=== PATIENT | female | born 1955 | race Caucasian/White ===

== ENCOUNTER → 2016-12-02 | Outpatient (CLI) | payer OTHER | END | disposition home or self-care (01) | LOC: C.PAPS 18:06 | PROVIDERS: ATTEND Physician Assistant | DX: Z12.4 Encounter for screening for malignant neoplasm of cervix (principal) ==

== ENCOUNTER → 2017-03-25 | Outpatient (CLI) | payer OTHER ==
--- NOTE | 2017-03-26 15:53 | MAMMOGRAPHY REPORT ---
BILATERAL DIGITAL SCREENING MAMMOGRAM TOMOSYNTHESIS WITH CAD: 03/25/2017 CLINICAL HISTORY: Routine screening. Patient has no complaints. TECHNIQUE: Breast tomosynthesis in addition to standard 2D mammography was performed. Current study was also evaluated with a Computer Aided Detection (CAD) system. COMPARISON: Comparison is made to exams dated: 06/27/2015 mammogram, 07/20/2013 mammogram, 07/23/2012 a spiration, 07/12/2012 ultrasound, 07/12/2012 mammogram, and 07/02/2011 mammogram - [facility] enter. BREAST COMPOSITION: There are scattered areas of fibroglandular density in both breasts. FINDINGS: No suspicious masses, calcifications, or areas of architectural distortion are noted in ei ther breast. There has been no significant interval change compared to prior exams. IMPRESSION: ACR BI-RADS CATEGORY 1: NEGATIVE There is no mammographic evidence of malignancy. A 1 year screening mammogram is recommended. The pa tient will receive written notification of the results. Approximately 10% of breast cancers are not detected with mammography. A negative mammographic report should not delay biopsy if a clinically suggestive mass is present. Kelly Wright M.D. /:03/25/2017 16:40:41 Executive Director [employer]: Mary Jane VALDEZ(Megan)(Justine), [facility] letter sent: Normal 1/2 BI-RADS Code: ACR BI-RADS Category 1: Negative
== END | disposition home or self-care (01) ==
LOC: C.MAMM 16:27
PROVIDERS: ATTEND Obstetrics & Gynecology
DX: Z12.31 Encounter for screening mammogram for malignant neoplasm of breast (principal)

== ENCOUNTER 2021-12-25 21:30 | Observation (INO) ==
[2021-12-25] MEDS ORDERED: ONDANSETRON INJ 2 MG/ML 2 ML VIAL ONE (21:35)
[2021-12-25] MEDS ORDERED: SODIUM CHLORIDE 0.9% 1000ML 1,000 ML IV STA (22:03)
[2021-12-25 22:25] LABS: Basophils # (auto) 0.03 K/uL (0-0.2); Basophils % (auto) 0.2 %; Eosinophils # (auto) 0.02 K/uL (0-0.50); Eosinophils % (auto) 0.2 %; Hematocrit (blood only) 38.9 % (34.1-44.9); Hemoglobin 13.1 g/dl (12.0-16.0); Immature Granulocytes # (auto) 0.04 K/uL (0.00-0.02); Immature Granulocytes % (auto) 0.3 %; Lymphocytes # (auto) 1.34 K/uL (1.2-3.4); Lymphocytes % (auto) 10.9 %; Mean Corpuscular Hemoglobin 30.3 pg (25.0-34.0); Mean Corpuscular Hgb Conc 33.7 g/dL (32.0-36.0); Mean Corpuscular Volume 89.8 fL (80.0-100.0); Mean Platelet Volume 9.5 fL (9.4-12.3); Monocytes # (auto) 0.58 K/uL (0.24-0.82); Monocytes % (auto) 4.7 %; Neutrophils # (auto) 10.33 K/uL (1.4-6.5); Neutrophils % (auto) 83.7 %; Platelet Count 225 K/uL (130-400); RDW Coefficient of Variation 13.3 % (11.5-14.5); RDW Standard Deviation 43.7 fL (36.4-46.3); Red Blood Count 4.33 M/uL (3.93-5.22); White Blood Count 12.34 K/ul (4.8-10.8)
[2021-12-25 22:48] LABS: Albumin Globulin Ratio 1.3 (0.9-2); Albumin Level 3.5 gm/dl (3.4-5.0); BUN Creatinine Ratio 18.6 (10-20); Bilirubin,Total 0.3 mg/dl (0.2-1.0); Calcium 7.8 mg/dl (8.5-10.1); Creatinine Clr Calc Pharmacy 67.1 ml/min; Est GFR (Non-African American) 69.9 ml/min; Globulin 2.6 gm/dl (2.5-4.0); Potassium 3.7 mmol/L (3.5-5.1); Total Protein 6.1 gm/dl (6.0-8.3)
[2021-12-25 22:53] LABS: Troponin I High Sensitivity 3.2 pg/ml (0-14)
[2021-12-26] MEDS ORDERED: ONDANSETRON INJ 2 MG/ML 2 ML VIAL IV STA (00:23)
--- NOTE | 2021-12-26 01:16 | Emergency Department Note ---
History of Present Illness General Chief complaint: Dizziness Stated complaint: Dizziness, Nausea, Vomiting Time Seen by Provider: 12/25/21 23:36 Source: patient Mode of arrival: EMS Limitations: no limitations History of Present Illness Provider complaint: dizziness Onset (ago): hour(s) This is a 66-year-old female who presents emergency department due to abrupt onset of vertigo with accompanying nausea, vomiting. Patient states she was out with her at the [employer] playing video games, when symptoms began abruptly. She states she has had prior episodes of vertigo versus typically they are brief lasting only several minutes. She states this episode is more severe precipitating nausea and vomiting, and symptoms did not pass. She denies any recent change in medications. No recent fevers, chills, or illness. She denies any coming headache, chest pain, abdominal pain, palpitations, shortness of breath. Patient states the dizziness is worse with any attempt at movement or sitting up as well as with opening or moving eyes. Home Medications Medication Instructions Recorded Confirmed Type fexofenadine 180 mg tablet 180 mg PO DAILY #90 tabs 09/01/18 12/26/21 Rx fluticasone propionate 50 2 sprays intranasal DAILY #16 grams 09/01/18 12/26/21 Rx mcg/actuation nasal spray,suspension albuterol sulfate 90 mcg/actuation 1 - 2 puff inhalation .COMPLEX PRN 08/21/20 12/26/21 Rx aerosol inhaler (Ventolin HFA) shortness of breath or wheezing #8.5 grams montelukast 10 mg tablet 10 mg PO QPM PRN Allergy Symptoms 12/19/20 12/26/21 History (Singulair) calcium carbonate 600 mg-vitamin 1 tab PO DAILY 12/26/21 12/26/21 History D3 10 mcg (400 unit) tablet (Calcium 600 + D(3)) multivitamin 1 tab PO DAILY 12/26/21 12/26/21 History aspirin 81 mg tablet,delayed 81 mg PO DAILY #90 tabs 12/27/21 Rx release atorvastatin 40 mg tablet 40 mg PO QAM #30 tabs 12/27/21 Rx clopidogrel 75 mg tablet 75 mg PO QAM #20 tabs 12/27/21 Rx cyanocobalamin (vitamin B-12) 1,000 mcg PO DAILY #30 caps 12/27/21 Rx 1,000 mcg capsule meclizine 25 mg tablet 25 mg PO TID PRN dizziness #10 tabs 12/27/21 Rx Allergies Allergy/AdvReac Type Severity Reaction Status Date / Time Penicillins Allergy Unknown Swelling Verified 12/26/21 01:09 of Lip/Tongue/Throat Past Med/Surg History Medical History (Updated 12/28/21 @ 06:01 by Maricarmen Cottrell DO) B12 deficiency History of asthma History of migraine headaches Prediabetes Tension headache Surgical History History of arthroscopy of right knee History of dilatation and curettage History of inguinal hernia repair History of knee surgery Family History Mother Breast cancer Lung cancer Depression Aunt Breast cancer Ovarian cancer Father Myocardial infarction Heart disease Hypertension Sister Skin cancer Uterine cancer Diabetes Brother Hypertension Sister No problems noted. Son Thyroid cancer Son No problems noted. Son No problems noted. Denies family history of Prostate cancer Colorectal cancer Social History Smoking Status: Former smoker Tobacco Type: Cigarettes Age Started Using Tobacco: 19; Age Quit Using Tobacco: 49; packs per day: 1; Years Smoked: 30; Second Hand Exposure: Yes; Hx Alcohol Use: Yes Alcohol type: beer, wine and hard liquor Alcohol Intake Frequency: 2-3 x/Week Hx Substance Use: No Preferred Language: Indonesian Communication Ability: Effective Visual Impairment: No Limitations Hearing Ability: Normal Front Desk Attendant Required: No Beliefs That Will Affect Care: None marital status: Current Living Situation: Spouse current occupational status: employed 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 Feels Safe at Home: Yes Childhood Exposure to Second-Hand Smoke: No Diet Comment: regular Dental Care, Regularly: Yes Physical Activity Frequency: 3-4 Times per Week Seatbelt Use: always Sunscreen Use: Yes Assistive Devices: None Review of Systems A total of 10 systems reviewed and were otherwise negative All systems reviewed & are unremarkable except as noted in HPI & below Physical Exam Vital Signs Vital Signs - 24 hr 12/25/21 21:43 12/25/21 22:26 12/25/21 22:26 Temperature 36.5 C Temperature Source Oral Pulse Rate 68 Pulse Rate [Finger] 65 Respiratory Rate 22 20 Respiratory Effort / Characteristics Non-Labored Spontaneous Non-Labored Spontaneous Respiratory Depth Normal Normal Blood Pressure 154/84 H Blood Pressure [Right Arm] 131/75 Blood Pressure Mean 107 Blood Pressure Mean [Right Arm] 93 Blood Pressure Position Sitting Blood Pressure Position [Right Arm] Sitting Pulse Oximetry 98 96 96 Oxygen Delivery Method Room Air Room Air Room Air Sepsis Recent Fever Within 48 Hours No Sepsis New/Unexplained Change in Mental Status No Sepsis Action Taken by Nursing No Action Required 12/26/21 00:14 Temperature Temperature Source Pulse Rate Pulse Rate [Finger] 83 Respiratory Rate 20 Respiratory Effort / Characteristics Non-Labored Spontaneous Respiratory Depth Normal Blood Pressure Blood Pressure [Right Arm] Blood Pressure Mean Blood Pressure Mean [Right Arm] Blood Pressure Position Blood Pressure Position [Right Arm] Pulse Oximetry 93 Oxygen Delivery Method Room Air Sepsis Recent Fever Within 48 Hours Sepsis New/Unexplained Change in Mental Status Sepsis Action Taken by Nursing GENERAL: alert, unwell appearing, well nourished, no distress, non-toxic EYE EXAM: normal conjunctiva, PERRL and EOM's grossly intact, nystagmus noted OROPHARYNX: no exudate, no erythema, lips, buccal mucosa, and tongue normal and mucous membranes are moist NECK: supple, no nuchal rigidity, no adenopathy, non-tender LUNGS: Clear to auscultation. Normal chest wall mechanics, no w/r/r HEART: no murmurs, S1 normal and S2 normal ABDOMEN: abdomen soft, non-tender, normo-active bowel sounds, no masses, no rebound or guarding. BACK: Back is symmetrical on inspection and there is no deformity, no midline tenderness, no CVA tenderness. SKIN: no rashes and no bruising UPPER EXTREMITIES: upper extremities are grossly normal. FROM, nml pulses b/l. LOWER EXTREMITIES: No pitting edema. FROM, nml pulses b/l. NEURO EXAM: Normal sensorium, cranial nerves II-XII grossly intact, normal speech, no gross weakness of arms, no gross weakness of legs. Gross sensation intact. Course Administered Medications Discontinued Medications Acetaminophen (Acetaminophen 500 Mg Tab) 1,000 mg PO Q6H PRN PRN Reason: Pain or Fever Stop: 01/26/22 11:33 Last Admin: 12/27/21 14:02 Dose: 1,000 mg Documented By: RRR Aspirin (Aspirin 81 Mg Ectab) 81 mg PO DAILY [facility] Stop: 01/25/22 08:59 Last Admin: 12/27/21 10:15 Dose: 81 mg Documented By: Admin: 12/26/21 11:02 Dose: 81 mg Documented By: JACQUELINE Atorvastatin Calcium (Atorvastatin 40 Mg Tab) 40 mg PO QAM [facility] Stop: 01/26/22 08:59 Last Admin: 12/27/21 10:16 Dose: 40 mg Documented By: RRR Clopidogrel Bisulfate (Clopidogrel Bisulfate 300 Mg Tab) 300 mg PO NOW STA Stop: 12/26/21 15:30 Last Admin: 12/26/21 15:49 Dose: 300 mg Documented By: JACQUELINE Clopidogrel Bisulfate (Clopidogrel Bisulfate 75 Mg Tab) [facility] Stop: 01/26/22 08:59 Last Admin: 12/27/21 10:16 Dose: 75 mg Documented By: SELENA Cyanocobalamin (Cyanocobalamin 1000 Mcg/Ml Vial) 1,000 [facility]cg [facility] Stop: 12/29/21 09:01 Last Admin: 12/27/21 10:36 Dose: 1,000 mcg Documented By: SELENA Diazepam (Diazepam 5 Mg/Ml Inj 10ml Vial) 2 mg IV NOW STA Stop: 12/26/21 00:24 Last Admin: 12/26/21 00:33 Dose: 2 mg Documented By: FRANCY Diazepam (Diazepam 5 Mg/Ml Inj 10ml Vial) 2 mg IV NOW STA Stop: 12/26/21 04:58 Last Admin: 12/26/21 05:40 Dose: 2 mg Documented By: FRANCY Diazepam (Diazepam 5 Mg/Ml Inj 10ml Vial) 5 mg IV NOW STA Stop: 12/26/21 09:01 Last Admin: 12/26/21 09:18 Dose: Not Given Documented By: JACQUELINE Gadobutrol (Gadobutrol 65ml Vial) 8 ml IV ONCE ONE Stop: 12/26/21 10:36 Last Admin: 12/26/21 10:34 Dose: 8 ml Documented By: RUDDY Sodium Chloride (Nss 1000ml) 1,000 mls @ 999 mls/hr IV .Q1H1M STA Stop: 12/25/21 23:03 Last Infusion: 12/25/21 23:39 Dose: 0 mls/hr Documented By: Admin: 12/25/21 22:04 Dose: 999 mls/hr Documented By: RODRIGO Prochlorperazine (Compazine) 1 mls @ 1 mls/min IV ONE ONE Stop: 12/26/21 04:58 Last Admin: 12/26/21 05:19 Dose: 1 mls/min Documented By: FRANCY Lorazepam 1 mg/ Syringe 1 mls @ 2 mls/min IV NOW STA Stop: 12/26/21 09:15 Last Admin: 12/26/21 09:51 Dose: 2 mls/min Documented By: JACQUELINE Sodium Chloride (Nss 1000ml) 1,000 mls @ 125 mls/hr IV .Q8H SLOAN Stop: 12/27/21 06:14 Last Infusion: 12/27/21 06:53 Dose: 0 mls/hr Documented By: Admin: 12/26/21 22:53 Dose: 125 mls/hr Documented By: Infusion: 12/26/21 22:48 Dose: 125 mls/hr Documented By: Admin: 12/26/21 14:48 Dose: 125 mls/hr Documented By: JACQUELINE Acetaminophen (Ofirmev) 1,000 mg in 100 mls @ 400 mls/hr IV Q8H PRN PRN Reason: pain or fever Stop: 12/29/21 14:15 Last Infusion: 12/26/21 23:42 Dose: 0 mls/hr Documented By: Admin: 12/26/21 23:27 Dose: 400 mls/hr Documented By: Infusion: 12/26/21 15:15 Dose: 0 mls/hr Documented By: Admin: 12/26/21 14:48 Dose: 400 mls/hr Documented By: JACQUELINE Ioversol (Optiray 320 500ml) 112 ml IV ONCE ONE Stop: 12/26/21 01:29 Last Admin: 12/26/21 01:29 Dose: 112 ml Documented By: JACINTO Meclizine HCl (Meclizine Hcl 25 Mg Tab) 25 mg PO NOW STA Stop: 12/26/21 03:07 Last Admin: 12/26/21 03:29 Dose: 25 mg Documented By: FRANCY Ondansetron HCl (Ondansetron Inj 2 Mg/Ml 2 Ml Vial) Confirm Administered Dose 4 mg .ROUTE .STK-MED ONE Stop: 12/25/21 21:36 Last Admin: 12/25/21 22:04 Dose: 4 mg Documented By: RODRIGO Ondansetron HCl (Ondansetron Inj 2 Mg/Ml 2 Ml Vial) 4 mg IV NOW STA Stop: 12/26/21 00:24 Last Admin: 12/26/21 00:34 Dose: 4 mg Documented By: FRANCY Ondansetron HCl (Ondansetron Inj 2 Mg/Ml 2 Ml Vial) 4 mg IV Q6H PRN PRN Reason: Nausea Stop: 01/25/22 08:01 Last Admin: 12/26/21 08:21 Dose: 4 mg Documented By: JACQUELINE Perflutren Lipid Microsphere (Perflutren Lipid Microsphere (Definity)) 2 ml IV ONCE ONE Stop: 12/26/21 13:48 Last Admin: 12/26/21 13:47 Dose: 2 ml Documented By: BENNY Potassium Chloride (Potassium Chloride Crtab 20 Meq Tabcr) 40 meq PO NOW STA Stop: 12/27/21 09:37 Last Admin: 12/27/21 10:16 Dose: 40 meq Documented By: RRR Medical Decision Making Differential Diagnosis Differential diagnosis includes etiologies such as benign positional vertigo, dehydration, hypovolemia, anemia, tumor, infection, hypoglycemia, electrolyte abnormalities, cardiac sources, intracerebral event, toxicologic, neurologic, as well as others were entertained. Medical Records Attestation: I reviewed the patient's medical records. Home Medications Current Medication List: was personally reviewed by me Laboratory Data Attestation: I reviewed the patient's lab results. Result diagrams: 12/27/21 05:46 12/27/21 05:46 Lab Results 12/25/21 12/25/21 12/26/21 Range/Units 22:15 22:15 02:00 WBC 12.34 H (4.8-10.8) K/ul RBC 4.33 (3.93-5.22) M/uL Hgb 13.1 (12.0-16.0) g/dl Hct 38.9 (34.1-44.9) % MCV 89.8 (80.0-100.0) fL MCH 30.3 (25.0-34.0) pg MCHC 33.7 (32.0-36.0) g/dL RDW Std Deviation 43.7 (36.4-46.3) fL RDW Coeff of Serenity 13.3 (11.5-14.5) % Plt Count 225 (130-400) K/uL MPV 9.5 (9.4-12.3) fL Immature Gran % (Auto) 0.3 % Neut % (Auto) 83.7 % Lymph % (Auto) 10.9 % [place] % (Auto) 4.7 % Eos % (Auto) 0.2 % Baso % (Auto) 0.2 % Neut # (Auto) 10.33 H (1.4-6.5) K/uL Lymph # (Auto) 1.34 (1.2-3.4) K/uL [place] # (Auto) 0.58 (0.24-0.82) K/uL Eos # (Auto) 0.02 (0-0.50) K/uL Baso # (Auto) 0.03 (0-0.2) K/uL Immature Gran # (Auto) 0.04 H (0.00-0.02) K/uL Sodium 140 (136-145) mmol/L Potassium 3.7 (3.5-5.1) mmol/L Chloride 111 H (98-107) mmol/L Carbon Dioxide 23 (21-32) mmol/L Anion Gap 6 (3-11) BUN 16 (6-23) mg/dl Creatinine 0.86 (0.6-1.2) mg/dl Est Cr Clr Drug Dosing 67.1 ml/min Est GFR ( Amer) 81.0 ml/min Est GFR (Non-Af Amer) 69.9 ml/min BUN/Creatinine Ratio 18.6 (10-20) Glucose 133 H (70-99(Fasting)) mg/dl Calcium 7.8 L (8.5-10.1) mg/dl Total Bilirubin 0.3 (0.2-1.0) mg/dl AST 14 (13-39) U/L ALT 13 (7-52) U/L Alkaline Phosphatase 46 (34-104) U/L Troponin I High Sens 3.2 (0-14) pg/ml Total Protein 6.1 (6.0-8.3) gm/dl Albumin 3.5 (3.4-5.0) gm/dl Globulin 2.6 (2.5-4.0) gm/dl Albumin/Globulin Ratio 1.3 (0.9-2) Urine Color Yellow Urine Appearance Clear (Clear) Urine pH 8.5 H (4.5-7.5) Ur Specific [place] 1.024 (1.000-1.030) Urine Protein Negative (Negative) Urine Glucose (UA) Negative (Negative) Urine Ketones Negative (Negative) Urine Blood Negative (Negative) Urine Nitrite Negative (Negative) Urine Bilirubin Negative (Negative) Urine Urobilinogen Negative (Negative) Ur Leukocyte Esterase Negative (Negative) Imaging Data Radiologist's Impression: CT head: Mild brain volume loss. No mass, hemorrhage or acute infarct. Sinuses, mastoids and the bones are intact. Impression: No acute findings. Radiologist: Otoniel Bella MD CTA neck: Aortic arch is intact. Minimal atherosclerosis of the proximal right ICA. The left carotids are intact. The vertebral arteries are intact. Upper lung bojorquez are clear. Soft tissue structures are intact. DJD. Impression: No acute findings. Radiologist: Otoniel Bella MD CTA head: The cavernous carotid arteries are intact. The MCAs and ACAs are intact. The vertebrals, basilar and the escapement maker are intact. Impression: No acute findings. Radiologist: Otoniel Bella MD MDM Narrative An order was placed for continuous cardiac monitoring. The monitor shows a rate of _86__ with _normal sinus_ rhythm. THis is a 66 yo female with a history of vertigo who presents with severe vertigo and nausea/vomiting. Labs drawn and sent and pt given zofran E [employer]. IVF started. Patient with a limited neuro exam due to symptoms, however no focal deficits noted. She admits to alcohol earlier in the evening but was not clinically intoxicated. Symptoms this evening lasted longer than usual. Imaging performed given severity and was reassuring. Labs reassuring. Patient given several medications for nausea and dizziness without improvement. Case discussed with hospitalist for additional evaluation. Impression & Plan Vertigo, Nausea & vomiting Discharge Plan Visit Data Chief Complaint: Dizziness Stated Complaint: Dizziness, Nausea, Vomiting ED Provider: Maricarmen Cottrell Discharge Problem: Vertigo, Nausea & vomiting Patient Disposition: Admitted As Inpatient Discharge Instructions Interventions: ED Discharge Assessment Last Done: 12/26/21 07:30
[2021-12-26] MEDS ORDERED: OPTIRAY 320 500ml IV ONE (01:28)
[2021-12-26 02:43] LABS: Appearance Urine Clear (Clear); Bilirubin Urine Negative (Negative); Blood Urine Negative (Negative); Color Urine Yellow; Glucose Urine UA Negative (Negative); Ketones Urine Negative (Negative); Leukocyte Esterase Urine Negative (Negative); Nitrite Urine Negative (Negative); Protein Urine Negative (Negative); Specific Gravity Urine 1.024 (1.000-1.030); Urobilinogen Urine Negative (Negative); pH Urine 8.5 (4.5-7.5)
[2021-12-26] MEDS ORDERED: MECLIZINE HCL 25 MG TAB PO STA (03:06)
[2021-12-26] MEDS ORDERED: PROCHLORPERAZINE 1 ML IV ONE (04:57)
--- NOTE | 2021-12-26 05:50 | History & Physical Report ---
Date of Service December 26, 2021 Assessment & Plan (1) Vertigo: Plan: 66yo female with history of migraine presenting with acute onset vertigo, nausea with multiple episodes of non-bloody/non-bilious vomiting. Symptoms are aggravated by slight movement and positional changes. No focal neurological deficits. Patient does report a brief episode of dysarthria several days ago which resolved after two aspirin. Concerning for possible TIA -Observation to medical with telemetry -Neuro checks per protocol -Check MRI brain -Check 2D echo -Check lipids and A1C -Will initiate ASA 81mg po daily for now - can be discontinued if no CVA present -Meclizine PRN -Zofran PRN History of Present Illness Chief Complaint: vertigo Primary Care Provider: Abbey Mora MD Mena Torres is a 66yo female presenting with acute onset of vertigo. She was out this evening with her at [employer]. She had a few drinks and was playing a video game when she developed acute onset of vertigo, nausea with vomiting. She was unable to keep her eyes open and was having difficulty with ambulation. She denies LUND, speech difficulty or focal numbness or weakness. She was given multiple agent in the ER to attempt to control nausea and dizziness, however, patient still unable to keep her eyes open for a long period of time. Persistent vomiting in the ER - Non-bloody/Non-bilious Afebrile, HD stable Vomiting throughout exam Patient does report a strange episode 3 days ago during which she was unable to speak. The event lasted approximately 30 seconds. She took 2 baby aspirin, and the symptoms resolved on their own. She has never had an experience like that before. ER Course: Diazepam 2mg x 2 doses, Prochlorperazine 1mL, Meclizine 25mg, Zofran 4mg IV x 4, NSS Allergies Allergy/AdvReac Type Severity Reaction Status Date / Time Penicillins Allergy Unknown Swelling Verified 12/26/21 01:09 of Lip/Tongue/Throat Home Medications Medication Instructions Recorded Confirmed Type fexofenadine 180 mg tablet 180 mg PO DAILY #90 tabs 09/01/18 12/26/21 Rx fluticasone propionate 50 2 sprays intranasal DAILY #16 grams 09/01/18 12/26/21 Rx mcg/actuation nasal spray,suspension albuterol sulfate 90 mcg/actuation 1 - 2 puff inhalation .COMPLEX PRN 08/21/20 12/26/21 Rx aerosol inhaler (Ventolin HFA) shortness of breath or wheezing #8.5 grams montelukast 10 mg tablet 10 mg PO QPM PRN Allergy Symptoms 12/19/20 12/26/21 History (Singulair) calcium carbonate 600 mg-vitamin 1 tab PO DAILY 12/26/21 12/26/21 History D3 10 mcg (400 unit) tablet (Calcium 600 + D(3)) multivitamin 1 tab PO DAILY 12/26/21 12/26/21 History Past Med/Surg History Medical History (Updated 12/26/21 @ 06:01 by Kareen Kramer DO) History of asthma History of migraine headaches Surgical History History of arthroscopy of right knee History of dilatation and curettage History of inguinal hernia repair History of knee surgery Family History Mother Breast cancer Lung cancer Depression Aunt Breast cancer Ovarian cancer Father Myocardial infarction Heart disease Hypertension Sister Skin cancer Uterine cancer Diabetes Brother Hypertension Sister No problems noted. Son Thyroid cancer Son No problems noted. Son No problems noted. 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 Feels Safe at Home: Yes Childhood Exposure to Second-Hand Smoke: No Diet Comment: regular Dental Care, Regularly: Yes Physical Activity Frequency: 3-4 Times per Week Seatbelt Use: always Sunscreen Use: Yes Assistive Devices: None Review of Systems Review of Systems: All systems reviewed & are unremarkable except as noted in HPI & below Physical Exam Physical Exam: General: patient resting, in moderate distress due to persistence of vertigo and vomiting Skin: warm, dry, intact, no rashes or lesions HEENT: NC/AT, PERRL, EOMI, anicteric sclera, conjunctiva without injection, external ear normal to inspection and nontender, nares patent, moist mucus membranes, dentition intact, no oropharyngeal lesions, neck supple, trachea midline, no LAD, no thyromegaly, no JVD Heart: +S1/S2, regular, no m/r/g Lungs: equal air entry bilaterally, no rales/rhonchi/wheezes Abd: +BS, soft, NT/ND, no masses/organomegaly/ascites Ext: warm, 2+ pulses in UE/LE bilaterally, no clubbing/cyanosis or edema Neuro:exam limited, largely nonfocal. Patient answers questions, speech clear and appropriate, no facial droop, MS 5/5 in UE/LE bilaterally, HINTS test attempted - unable to adequately perform head impulse test due to symptoms. No nystagmus noted. Normal test of skew. Strength 5/5 bilaterally Results & Data Results & Data ([facility]) Vital Signs (Past 12 Hours) Vital Signs Temp Pulse Pulse Resp BP BP Pulse Ox 12/26/21 05:00 74 17 116/85 94 12/26/21 04:00 73 19 127/103 H 12/26/21 03:00 70 14 98 12/26/21 00:14 83 20 93 12/25/21 22:26 65 20 131/75 96 12/25/21 22:26 96 12/25/21 21:43 36.5 C 68 22 154/84 H 98 O2 Del Method 12/26/21 05:00 Room Air 12/26/21 04:00 12/26/21 03:00 Room Air 12/26/21 00:14 Room Air 12/25/21 22:26 Room Air 12/25/21 22:26 Room Air 12/25/21 21:43 Room Air Laboratory Results Laboratory Results WBC 12.34 K/ul (4.8-10.8) H 12/25/21 22:15 RBC 4.33 M/uL (3.93-5.22) 12/25/21 22:15 Hgb 13.1 g/dl (12.0-16.0) 12/25/21 22:15 Hct 38.9 % (34.1-44.9) 12/25/21 22:15 MCV 89.8 fL (80.0-100.0) 12/25/21 22:15 MCH 30.3 pg (25.0-34.0) 12/25/21 22:15 MCHC 33.7 g/dL (32.0-36.0) 12/25/21 22:15 RDW Std Deviation 43.7 fL (36.4-46.3) 12/25/21:15 RDW Coeff of Serenity 13.3 % (11.5-14.5) 12/25/21 22:15 Plt Count 225 K/uL (130-400) 12/25/21 22:15 MPV 9.5 fL (9.4-12.3) 12/25/21 22:15 Immature Gran % (Auto) 0.3 % 12/25/21 22:15 Neut % (Auto) 83.7 % 12/25/21 22:15 Lymph % (Auto) 10.9 % 12/25/21 22:15 Dawson % (Auto) 4.7 % 12/25/21 22:15 Eos % (Auto) 0.2 % 12/25/21 22:15 Baso % (Auto) 0.2 % 12/25/21 22:15 Neut # (Auto) 10.33 K/uL (1.4-6.5) H 12/25/21 22:15 Lymph # (Auto) 1.34 K/uL (1.2-3.4) 12/25/21 22:15 Dawson # (Auto) 0.58 K/uL (0.24-0.82) 12/25/21 22:15 Eos # (Auto) 0.02 K/uL (0-0.50) 12/25/21 22:15 Baso # (Auto) 0.03 K/uL (0-0.2) 12/25/21 22:15 Immature Gran # (Auto) 0.04 K/uL (0.00-0.02) H 12/25/21 22:15 Sodium 140 mmol/L (136-145) 12/25/21 22:15 Potassium 3.7 mmol/L (3.5-5.1) 12/25/21 22:15 Chloride 111 mmol/L (98-107) H 12/25/21 22:15 Carbon Dioxide 23 mmol/L (21-32) 12/25/21 22:15 Anion Gap 6 (3-11) 12/25/21 22:15 BUN 16 mg/dl (6-23) 12/25/21 22:15 Creatinine 0.86 mg/dl (0.6-1.2) 12/25/21 22:15 Est Cr Clr Drug Dosing 67.1 ml/min 12/25/21 22:15 Est GFR ( Amer) 81.0 ml/min 12/25/21 22:15 Est GFR (Non-Af Amer) 69.9 ml/min 12/25/21 22:15 BUN/Creatinine Ratio 18.6 (10-20) 12/25/21 22:15 Glucose 133 mg/dl (70-99(Fasting)) H 12/25/21 22:15 Calcium 7.8 mg/dl (8.5-10.1) L 12/25/21 22:15 Total Bilirubin 0.3 mg/dl (0.2-1.0) 12/25/21 22:15 AST 14 U/L (13-39) 12/25/21 22:15 ALT 13 U/L (7-52) 12/25/21 22:15 Alkaline Phosphatase 46 U/L (34-104) 12/25/21 22:15 Troponin I High Sens 3.2 pg/ml (0-14) 12/25/21 22:15 Total Protein 6.1 gm/dl (6.0-8.3) 12/25/21 22:15 Albumin 3.5 gm/dl (3.4-5.0) 12/25/21 22:15 Globulin 2.6 gm/dl (2.5-4.0) 12/25/21 22:15 Albumin/Globulin Ratio 1.3 (0.9-2) 12/25/21 22:15 Urine Color Yellow 12/26/21 02:00 Urine Appearance Clear (Clear) 12/26/21 02:00 Urine pH 8.5 (4.5-7.5) H 12/26/21 02:00 Ur Specific [place] 1.024 (1.000-1.030) 12/26/21 02:00 Urine Protein Negative (Negative) 12/26/21 02:00 Urine Glucose (UA) Negative (Negative) 12/26/21 02:00 Urine Ketones Negative (Negative) 12/26/21 02:00 Urine Blood Negative (Negative) 12/26/21 02:00 Urine Nitrite Negative (Negative) 12/26/21 02:00 Urine Bilirubin Negative (Negative) 12/26/21 02:00 Urine Urobilinogen Negative (Negative) 12/26/21 02:00 Ur Leukocyte Esterase Negative (Negative) 12/26/21 02:[address] head, CTA head and neck performed with no acute abnormality PG Care Time/CCT Total # of Minutes Spent Total Time Spent with Patient: Total time spent is greater than 50% in coordination of care (as documented) at patient's floor/unit and/or counseling patient: Coding Level of Care Code INT OBSERVATION CARE 50M LVL 2 Diagnoses Vertigo R42
--- NOTE | 2021-12-26 07:13 | CT Scan Report ---
HEAD CT NONCONTRAST CT DOSE: 1160.87 mGy.cm HISTORY: liao, dizzy, vomiting TECHNIQUE: Multiaxial CT images of the head were performed without the use of intravenous contrast. A utomated exposure control was utilized for this study. A dose lowering technique was utilized adheri ng to the principles of ALARA. Comparison: Head CT 09/19/2018. Findings: The paranasal sinuses and mastoid air cells are clear. The calvarium and skull base are int act. The ventricles and sulci are within normal limits. There is no mass, hematoma, midline shift, or acute infarct. Impression: No acute intracranial abnormality. ACT 112: Negative or not required by law. Electronically signed by: Franklyn Guillermo M.D. 12/26/2021 7:12 AM
--- NOTE | 2021-12-26 07:37 | CT Scan Report ---
NECK CTA HISTORY: Headache, dizzy, vomiting TECHNIQUE: Multiaxial CT images of the neck were performed following the intravenous administration o f contrast to evaluate the major cervical vessels. Maximum intensity projection images were also obta ined. All measurements were calculated based on NASCET criteria. A dose lowering technique was utili zed adhering to the principles of ALARA. COMPARISON STUDY: None. FINDINGS: The aortic arch and proximal great vessels are widely patent. There is no significant sten osis, occlusion, or dissection identified within the bilateral common carotid, internal carotid, or v ertebral arteries. Incidental note is made of a focal kink within within the proximal left femoral ar caio. IMPRESSION: No significant stenosis, occlusion, or dissection identified within the carotid or vertebral arteries . ACT 112: Negative or not required by law. Electronically signed by: Franklyn Guillermo M.D. 12/26/2021 7:36 AM
[2021-12-26] MEDS ORDERED: ONDANSETRON INJ 2 MG/ML 2 ML VIAL IV PRN (08:02)
[2021-12-26] MEDS ORDERED: MECLIZINE HCL 25 MG TAB PO PRN (08:02)
[2021-12-26 08:51] LABS: Phosphorus 3.6 mg/dl (2.5-4.9)
--- NOTE | 2021-12-26 09:03 | CT Scan Report ---
CT ANGIOGRAM OF THE BRAIN CLINICAL HISTORY: Headache and dizziness. Vomiting. COMPARISON STUDY: Unenhanced CT of the brain performed concurrently on 12/26/2021. TECHNIQUE: Following the IV administration of 112 cc of Optiray 320, CT angiogram of the brain was pe rformed from the skull base to the vertex. Images are reviewed in the axial, sagittal, and coronal pl anes. 3-D MIPS images are created and assessed. IV contrast was administered without complication. A dose lowering technique was utilized adhering to the principles of ALARA. FINDINGS: Brain parenchyma: There is no evidence of hemorrhage, mass effect, or acute territorial ischemia noti ng angiographic phase technique. There is no evidence of enhancing mass lesion on the angiogram phase images. No extra-axial fluid collection is seen. Miles-white matter differentiation is preserved. Ventricles, sulci, and cisterns: Normal in configuration. CT angiogram of the brain: The internal carotid arteries are widely patent, as are the anterior and m iddle cerebral arteries. The basilar artery is diminutive and there are bilateral posterior communica ting arteries. The vertebrobasilar system and posterior cerebral arteries are widely patent. The vert ebral arteries are codominant. There is no aneurysm, high-grade stenosis, or focal vessel cutoff iden tified throughout the intracranial circulation. Dural sinuses: Clear as visualized. Orbits: The bony orbits are intact. The orbital contents are normal as visualized noting bilateral oc ular lens implants. Sinuses and mastoids: The visualized paranasal sinuses are clear. The mastoid air cells are well pneu matized. Calvarium: Unremarkable. IMPRESSION: 1. There is no evidence of hemorrhage, mass effect, or acute territorial ischemia noting angiographic phase technique. 2. Unremarkable CT angiogram of the brain ACT 112: Negative or not required by law. Electronically signed by: Gamaliel Moraes M.D. 12/26/2021 9:02 AM
[2021-12-26] MEDS ORDERED: LORazepam 1 MG in SYRINGE 0 ML IV STA (09:14)
--- NOTE | 2021-12-26 09:41 | Electrocardiogram Report ---
Test Reason : Blood Pressure : / mmHG Vent. Rate : 071 BPM Atrial Rate : 071 BPM P-R Int : 144 ms QRS Dur : 070 ms QT Int : 410 ms P-R-T Axes : 077 052 064 degrees QTc Int : 445 ms Normal sinus rhythm Normal ECG When compared with ECG of 19-SEP-2018 07:49, No significant change was found Confirmed by Howard Gary ([id number]) on 12/26/2021 9:41:03 AM Referred By: REFERRED SELF Confirmed By:Howard Gary
[2021-12-26] MEDS ORDERED: GADOBUTROL 65ML VIAL IV ONE (10:35)
[2021-12-26] MEDS: ASPIRIN 81 MG ECTAB PO SCH (11:02)
[2021-12-26] MEDS ORDERED: PERFLUTREN LIPID MICROSPHERE (DEFINITY) IV ONE (13:47)
--- NOTE | 2021-12-26 14:04 | Magnetic Resonance Report ---
MR brain wo/w con HISTORY: 66 years-old Female ?posterior CVA - vertigo, vomiting acute strokelike symptoms with verti go, nausea and vomiting. COMPARISON: Head CT of same day, brain MRI 11/03/2005. TECHNIQUE: Multiplanar and multisequence MRI of the brain was obtained both with and without the use of 8 cc Gadavist. FINDINGS: 5 mm focus of restricted diffusion is noted involving the superior aspect of the left cerebellum, brittany ge 8 series 4 with decreased signal on the ADC map. Mild associated increased T2/FLAIR signal. No acu te or subacute territorial infarct. Midline structures appear unremarkable. There is no pathologic blooming artifact on the T2 star series. No acute intracranial hemorrhage, mid line shift, abnormal extra-axial collection, hydrocephalus or intracranial mass. Cerebral venous sinu ses and major arterial flow voids appear patent. The skull and soft tissues are unremarkable. Prior b ilateral lens repair. Mastoid air cells and paranasal sinuses are clear. Volume and signal of the bra in parenchyma is within normal limits. No abnormal enhancement. IMPRESSION: 1. Subcentimeter acute infarct of the superior left cerebellum. 2. No acute or subacute territorial infarct. 3. No abnormal enhancement. ACT 112: Negative or not required by law. The above report was generated using voice recognition software. It may contain grammatical, syntax o r spelling errors. Dictated: 12/26/2021 12:45 PM Transcribed: 12/26/2021 1:01 PM Jaelyn [id number] [email or web address] Electronically signed by: Les Ling M.D. 12/26/2021 2:02 PM
--- NOTE | 2021-12-26 14:17 | Communication Note ---
Date of Service: December 26, 2021 Patient reports having a bitemporal headache, is very drowsy after receiving IV Ativan for sedation for her MRI. However, reports that her dizziness is much improved. No sensitivity to light, no nausea anymore but did have nausea and vomiting this morning. Later in the day, her MRI results returned and showed an acute left cerebellar stroke. I discussed these findings with her. She denies any history of hypertension, smoking, diabetes, prior stroke. She denies any history of blood clots in herself or the family. She also reports that several days ago she had an episode where she could not speak for few minutes. Also she has had an occurrence of blurry prism like vision in both eyes that lasts 2 minutes each time and has not followed by sandeep armenta. This has occurred at least 15 times in the last few months. She does have a previous history of migraine headaches but has not had one in a long time. She does however lately get tension headaches similar to when she has today. Vitals reviewed Gen: AAOx3, NAD HEENT: Anicteric sclerae, EOMI, PERRLA, no nystagmus CV: RRR no mgr nl S1S2 Pulm: CTAB no wcr Abd: +BS soft NT ND no masses or hernias Ext: No edema, 2+ DP pulses Skin: No rashes, warm/dry Neuro: Full strength throughout Labs and rads reviewed Telemetry with normal sinus rhythm, rates in the 70s to 90s CT angiogram head and neck negative, CT head negative MRI with 5 mm acute to subacute left cerebellar stroke 66-year-old female who presents with acute vertigo and intractable nausea/vomiting, now with bitemporal headache, found to have acute left cerebellar ischemic CVA. No large vessel occlusion seen on angiogram, no atrial fibrillation or flutter on telemetry. Echocardiogram negative for bubble study and with preserved EF, otherwise normal. No hypertension or diabetes, history of smoking Need to consider hypercoagulable panel but will consult with neurology Continue aspirin, add high intensity statin check lipid panel in the morning -Add IV fluids until tolerating p.o. better, give IV Tylenol as needed for headache -Continue meclizine as needed for vertigo
[2021-12-26] MEDS: ACETAMINOPHEN 1,000 MG/100 ML VIAL IV PRN ×2 (14:48→23:27)
[2021-12-26] MEDS: SODIUM CHLORIDE 0.9% 1000ML 1,000 ML IV SCH ×2 (14:48→22:53)
--- NOTE | 2021-12-26 15:27 | Neurology Consultation ---
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 CT angiography's and head CT were unremarkable. The patient was not a candidate for thrombolytic treatment because she was outside of treatment window when work-up completed. She has no known stroke risk factors including hypertension, hyperlipidemia, diabetes mellitus, and no history to suggest hypercoagulable state. She denies having palpitations but has family history of A. fib. Plan/recommendations: We will keep the patient on aspirin 81 mg daily. We will start patient on Plavix to use for 3 weeks, 75 mg daily. We will load the patient with 300 mg Plavix now. We will check fasting lipid panel. Goal LDL level is lower than 70. We will start patient on Lipitor if needed. There is no further indication for permissive hypertension. Goal blood pressure below 130/80. Telemetry monitoring. The patient will need cardiac rhythm monitoring. We do recommend Zio patch on discharge. I agree with meclizine to control symptoms of nausea, vomiting and vertigo. Physical therapy and Occupational Therapy evaluations. Echocardiogram. We will check the TSH, vitamin B12, homocystine. If the patient stays stable, we might consider discharge in next 24 hours. Follow-up at neurology clinic in a month. I will inform [facility] neurology clinic to set up a follow-up appointment. (2) Vertigo: Impression: This is secondary to acute cerebellar ischemic stroke. Plan Thank you for the consultation. 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 Head CT, CT angiography of head and neck were unremarkable. She was not having any sensorimotor deficit. After completing initial work-up, she was outside of thrombolytic treatment window. She was started on meclizine and aspirin and was admitted to hospital for stroke work-up. Since admission, her symptoms have been partially resolved. Brain MRI today showed acute ischemic stroke of cerebellum. The patient denies having stroke symptoms in the past. She is not a smoker and denies having hypertension, hyperlipidemia and diabetes mellitus. She has no history of recurrent DVTs, blood clotting abnormalities, or miscarriages. She also denies family history of early age strokes. She has no recollection of palpitations or racing heartbeats. Her father has atrial fibrillation. The patient denies head and neck trauma or having chiropractic maneuvers I have reviewed the patient's chart including imaging studies and visualized them personally. I have discussed the case with the patient and answer her questions in detail. Allergies Allergy/AdvReac Type Severity Reaction Status Date / Time Penicillins Allergy Unknown Swelling Verified 12/26/21 01:09 of Lip/Tongue/Throat Home Medications Medication Instructions Recorded Confirmed Type fexofenadine 180 mg tablet 180 mg PO DAILY #90 tabs 09/01/18 12/26/21 Rx fluticasone propionate 50 2 sprays intranasal DAILY #16 grams 09/01/18 12/26/21 Rx mcg/actuation nasal spray,suspension albuterol sulfate 90 mcg/actuation 1 - 2 puff inhalation .COMPLEX PRN 08/21/20 12/26/21 Rx aerosol inhaler (Ventolin HFA) shortness of breath or wheezing #8.5 grams montelukast 10 mg tablet 10 mg PO QPM PRN Allergy Symptoms 12/19/20 12/26/21 History (Singulair) calcium carbonate 600 mg-vitamin 1 tab PO DAILY 12/26/21 12/26/21 History D3 10 mcg (400 unit) tablet (Calcium 600 + D(3)) multivitamin 1 tab PO DAILY 12/26/21 12/26/21 History Patient History Medical History History of asthma History of migraine headaches Surgical History History of arthroscopy of right knee History of dilatation and curettage History of inguinal hernia repair History of knee surgery Family History Mother Breast cancer Lung cancer Depression Aunt Breast cancer Ovarian cancer Father Myocardial infarction Heart disease Hypertension Sister Skin cancer Uterine cancer Diabetes Brother Hypertension Sister No problems noted. Son Thyroid cancer Son No problems noted. Son No problems noted. Denies family history of Prostate cancer Colorectal cancer Social History Smoking Status: Former smoker Tobacco Type: Cigarettes Age Started Using Tobacco: 19; Age Quit Using Tobacco: 49; packs per day: 1; Years Smoked: 30; Second Hand Exposure: Yes; Hx Alcohol Use: Yes Alcohol type: beer, wine and hard liquor Alcohol Intake Frequency: 2-3 x/Week Hx Substance Use: No Preferred Language: Telugu Communication Ability: Effective Visual Impairment: No Limitations Hearing Ability: Normal Rn Occupational Required: No Beliefs That Will Affect Care: None marital status: Current Living Situation: Spouse current occupational status: employed 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 HENT: Normal exam with inspection. CV: Hearth rhythm is regular. Neck: Supple, no carotid bruits. Lungs: Non-labored and comfortable breathing. Abdomen: Soft, non-tender, non-distended. Skin: No rash or ecchymosis. Extremities: No edema or cyanosis NEUROLOGICAL EXAMINATION: Mental Status: Alert and oriented to place, person and time. Cranial Nerves: II-XII are intact. No nystagmus. Funduscopy: Normal looking optic discs. Motor: 5/5 in all extremities without asymmetry. Tone: Normal without spasticity or rigidity. DTRs: 2- all. No babinski. Sensory: Intact to all sensory modalities. Coordination: No dysmetria with FTN testing. Speech: Fluent. Comprehension is intact. Gait: Not assessed as movements induce vertigo Musculoskeletal: Normal muscle bulk, no atrophy. Results & Data ([facility]) Vital Signs (Past 12 Hours) Vital Signs Temp Pulse Pulse Resp BP BP Pulse Ox 12/26/21 14:36 36.9 C 122 H 18 122/71 93 12/26/21 11:01 36.7 C 84 18 137/79 92 12/26/21 08:15 71 12/26/21 08:09 36.6 C 78 18 123/75 95 12/26/21 07:00 73 16 147/87 H 12/26/21 06:00 70 15 154/98 H 97 12/26/21 05:00 74 17 116/85 94 12/26/21 04:00 73 19 127/103 H O2 Del Method 12/26/21 14:36 Room Air 12/26/21 11:01 Room Air 12/26/21 08:15 12/26/21 08:09 Room Air 12/26/21 07:00 12/26/21 06:00 Room Air 12/26/21 05:00 Room Air 12/26/21 04:00 Laboratory Results Laboratory Results - last 24 hr 12/25/21 12/25/21 12/26/21 22:15 22:15 02:00 WBC 12.34 H RBC 4.33 Hgb 13.1 Hct 38.9 MCV 89.8 MCH 30.3 MCHC 33.7 RDW Std Deviation 43.7 RDW Coeff of Serenity 13.3 Plt Count 225 MPV 9.5 Immature Gran % (Auto) 0.3 Neut % (Auto) 83.7 Lymph % (Auto) 10.9 Mckenzie % (Auto) 4.7 Eos % (Auto) 0.2 Baso % (Auto) 0.2 Neut # (Auto) 10.33 H Lymph # (Auto) 1.34 Mckenzie # (Auto) 0.58 Eos # (Auto) 0.02 Baso # (Auto) 0.03 Immature Gran # (Auto) 0.04 H Sodium 140 Potassium 3.7 Chloride 111 H Carbon Dioxide 23 Anion Gap 6 BUN 16 Creatinine 0.86 Est Cr Clr Drug Dosing 67.1 Est GFR ( Amer) 81.0 Est GFR (Non-Af Amer) 69.9 BUN/Creatinine Ratio 18.6 Glucose 133 H Calcium 7.8 L Ionized Calcium Phosphorus Magnesium Total Bilirubin 0.3 AST 14 ALT 13 Alkaline Phosphatase 46 Troponin I High Sens 3.2 Total Protein 6.1 Albumin 3.5 Globulin 2.6 Albumin/Globulin Ratio 1.3 Urine Color Yellow Urine Appearance Clear Urine pH 8.5 H Ur Specific Nicholson 1.024 Urine Protein Negative Urine Glucose (UA) Negative Urine Ketones Negative Urine Blood Negative Urine Nitrite Negative Urine Bilirubin Negative Urine Urobilinogen Negative Ur Leukocyte Esterase Negative SARS-CoV-2, RNA, NAAT 12/26/21 12/26/21 12/26/21 06:14 08:16 08:16 WBC RBC Hgb Hct MCV MCH MCHC RDW Std Deviation RDW Coeff of Serenity Plt Count MPV Immature Gran % (Auto) Neut % (Auto) Lymph % (Auto) Mckenzie % (Auto) Eos % (Auto) Baso % (Auto) Neut # (Auto) Lymph # (Auto) Mckenzie # (Auto) Eos # (Auto) Baso # (Auto) Immature Gran # (Auto) Sodium Potassium Chloride Carbon Dioxide Anion Gap BUN Creatinine Est Cr Clr Drug Dosing Est GFR ( Amer) Est GFR (Non-Af Amer) BUN/Creatinine Ratio Glucose Calcium Ionized Calcium 1.08 L Phosphorus 3.6 Magnesium 2.0 Total Bilirubin AST ALT Alkaline Phosphatase Troponin I High Sens Total Protein Albumin Globulin Albumin/Globulin Ratio Urine Color Urine Appearance Urine pH Ur Specific Nicholson Urine Protein Urine Glucose (UA) Urine Ketones Urine Blood Urine Nitrite Urine Bilirubin Urine Urobilinogen Ur Leukocyte Esterase SARS-CoV-2, RNA, NAAT NEGATIVE Diagnostic Findings Head CT 12/26/21 00:[address] DOSE: 1160.87 mGy.cm HISTORY: liao, dizzy, vomiting TECHNIQUE: Multiaxial CT images of the head were performed without the use of intravenous contrast. Automated exposure control was utilized for this study. A dose lowering technique was utilized adhering to the principles of ALARA. Comparison: Head CT 09/19/2018. Findings: The paranasal sinuses and mastoid air cells are clear. The calvarium and skull base are intact. The ventricles and sulci are within normal limits. There is no mass, hematoma, midline shift, or acute infarct. Impression: No acute intracranial abnormality. ACT 112: Negative or not required by law. Electronically signed by: Franklyn Guillermo M.D. 12/26/2021 7:12 AM Head CTA 12/26/21 00:23 CT ANGIOGRAM OF THE BRAIN CLINICAL HISTORY: Headache and dizziness. Vomiting. COMPARISON STUDY: Unenhanced CT of the brain performed concurrently on 12/26/2021. TECHNIQUE: Following the IV administration of 112 cc of Optiray 320, CT angiogram of the brain was performed from the skull base to the vertex. Images are reviewed in the axial, sagittal, and coronal planes. 3-D MIPS images are created and assessed. IV contrast was administered without complication. A dose lowering technique was utilized adhering to the principles of ALARA. FINDINGS: Brain parenchyma: There is no evidence of hemorrhage, mass effect, or acute territorial ischemia noting angiographic phase technique. There is no evidence of enhancing mass lesion on the angiogram phase images. No extra-axial fluid collection is seen. Miles-white matter differentiation is preserved. Ventricles, sulci, and cisterns: Normal in configuration. CT angiogram of the brain: The internal carotid arteries are widely patent, as are the anterior and middle cerebral arteries. The basilar artery is diminutive and there are bilateral posterior communicating arteries. The vertebrobasilar system and posterior cerebral arteries are widely patent. The vertebral arteries are codominant. There is no aneurysm, high-grade stenosis, or focal vessel cutoff identified throughout the intracranial circulation. Dural sinuses: Clear as visualized. Orbits: The bony orbits are intact. The orbital contents are normal as visualized noting bilateral ocular lens implants. Sinuses and mastoids: The visualized paranasal sinuses are clear. The mastoid air cells are well pneumatized. Calvarium: Unremarkable. IMPRESSION: 1. There is no evidence of hemorrhage, mass effect, or acute territorial ischemia noting angiographic phase technique. 2. Unremarkable CT angiogram of the brain ACT 112: Negative or not required by law. Electronically signed by: Gamaliel Moraes M.D. 12/26/2021 9:02 AM Neck CTA 12/26/21 00:23 NECK CTA HISTORY: Headache, dizzy, vomiting TECHNIQUE: Multiaxial CT images of the neck were performed following the intravenous administration of contrast to evaluate the major cervical vessels. Maximum intensity projection images were also obtained. All measurements were calculated based on NASCET criteria. A dose lowering technique was utilized adhering to the principles of ALARA. COMPARISON STUDY: None. FINDINGS: The aortic arch and proximal great vessels are widely patent. There is no significant stenosis, occlusion, or dissection identified within the bilateral common carotid, internal carotid, or vertebral arteries. Incidental note is made of a focal kink within within the proximal left femoral artery. IMPRESSION: No significant stenosis, occlusion, or dissection identified within the carotid or vertebral arteries. ACT 112: Negative or not required by law. Electronically signed by: Franklyn Guillermo M.D. 12/26/2021 7:36 AM Brain MRI 12/26/21 08:02 MR brain wo/w con HISTORY: 66 years-old Female ?posterior CVA - vertigo, vomiting acute strokelike symptoms with vertigo, nausea and vomiting. COMPARISON: Head CT of same day, brain MRI 11/03/2005. TECHNIQUE: Multiplanar and multisequence MRI of the brain was obtained both with and without the use of 8 cc Gadavist. FINDINGS: 5 mm focus of restricted diffusion is noted involving the superior aspect of the left cerebellum, image 8 series 4 with decreased signal on the ADC map. Mild associated increased T2/FLAIR signal. No acute or subacute territorial infarct. Midline structures appear unremarkable. There is no pathologic blooming artifact on the T2 star series. No acute intracranial hemorrhage, midline shift, abnormal extra-axial collection, hydrocephalus or intracranial mass. Cerebral venous sinuses and major arterial f low voids appear patent. The skull and soft tissues are unremarkable. Prior bilateral lens repair. Mastoid air cells and paranasal sinuses are clear. Volume and signal of the brain parenchyma is within normal limits. No abnormal enhancement. IMPRESSION: 1. Subcentimeter acute infarct of the superior left cerebellum. 2. No acute or subacute territorial infarct. 3. No abnormal enhancement. ACT 112: Negative or not required by law. The above report was generated using voice recognition software. It may contain grammatical, syntax or spelling errors. Dictated: 12/26/2021 12:45 PM Transcribed: 12/26/2021 1:01 PM Jaelyn [id number] [email or web address] Electronically signed by: Les Ling M.D. 12/26/2021 2:02 PM
[2021-12-26] MEDS ORDERED: CLOPIDOGREL BISULFATE 300 MG TAB PO STA (15:29)
--- NOTE | 2021-12-26 15:45 | XCELERA ---
[id number]
--- NOTE | 2021-12-26 19:25 | Communication Note ---
Date of Service: December 26, 2021 messaged about patient requesting ibuprofen for 7/10 headache. she normally alternates tylenol and ibuprofen at home. will avoid nsaids in setting of cer ebellar stroke.
[2021-12-27 06:08] LABS: Basophils # (auto) 0.02 K/uL (0-0.2); Basophils % (auto) 0.3 %; Eosinophils # (auto) 0.07 K/uL (0-0.50); Eosinophils % (auto) 1.1 %; Hematocrit (blood only) 39.2 % (34.1-44.9); Hemoglobin 13.1 g/dl (12.0-16.0); Immature Granulocytes # (auto) 0.01 K/uL (0.00-0.02); Immature Granulocytes % (auto) 0.2 %; Lymphocytes # (auto) 2.46 K/uL (1.2-3.4); Lymphocytes % (auto) 39.7 %; Mean Corpuscular Hemoglobin 30.5 pg (25.0-34.0); Mean Corpuscular Hgb Conc 33.4 g/dL (32.0-36.0); Mean Corpuscular Volume 91.2 fL (80.0-100.0); Mean Platelet Volume 9.7 fL (9.4-12.3); Monocytes # (auto) 0.49 K/uL (0.24-0.82); Monocytes % (auto) 7.9 %; Neutrophils # (auto) 3.15 K/uL (1.4-6.5); Neutrophils % (auto) 50.8 %; Platelet Count 223 K/uL (130-400); RDW Coefficient of Variation 13.8 % (11.5-14.5); RDW Standard Deviation 46.3 fL (36.4-46.3)
[2021-12-27 06:42] LABS: BUN Creatinine Ratio 12.4 (10-20); Calcium 8.2 mg/dl (8.5-10.1); Est GFR (African American) 77.7 ml/min; Est GFR (Non-African American) 67.1 ml/min; Potassium 3.4 mmol/L (3.5-5.1)
[2021-12-27] MEDS ORDERED: PHARMACIST DISCHARGE MED REC CONSULT PRN (08:42)
[2021-12-27] MEDS ORDERED: ATORVASTATIN 40 MG TAB PO SCH (09:00)
[2021-12-27] MEDS ORDERED: CLOPIDOGREL BISULFATE 75 MG TAB PO SCH (09:00)
[2021-12-27 09:14] LABS: Estimated Average Glucose 120 mg/dl; Hemoglobin A1C 5.8 % (4.5-5.6)
[2021-12-27] MEDS ORDERED: POTASSIUM CHLORIDE CRTAB 20 MEQ TABCR PO STA (09:36)
[2021-12-27] MEDS ORDERED: CYANOCOBALAMIN 1000 MCG/ML VIAL IM SCH (09:45)
[2021-12-27] MEDS: ASPIRIN 81 MG ECTAB PO SCH (10:15)
[2021-12-27] MEDS: ACETAMINOPHEN 1,000 MG/100 ML VIAL IV PRN (11:20)
[2021-12-27] MEDS ORDERED: ACETAMINOPHEN 500 MG TAB PO PRN (11:34)
--- NOTE | 2021-12-27 12:45 | Neurology Progress Note ---
Date of Service December 27, 2021 Assessment & Plan (1) CVA (cerebral vascular accident): Plan: Impression: The patient presented with acute vertigo, nausea, vomiting, movement intolerance and imbalance representative phlebotomy services today. CT angiography's and head CT were unremarkable. The patient was not a candidate for thrombolytic treatment because she was outside of treatment window when work-up completed. She has no known stroke risk factors including hypertension, hyperlipidemia, diabetes mellitus, and no history to suggest hypercoagulable state. She denies having palpitations but has family history of A. fib. TTE is unremarkable as well as telemetry so far. LDL>70 and Lipitor is started. Clinically improved with slight unstediness with ambulation. Plan/recommendations: We will keep the patient on aspirin 81 mg daily. Continue on Plavix to use for 3 weeks, 75 mg daily. Continue on Lipitor with goal LDL<70 Goal blood pressure below 130/80. We do recommend Zio patch on discharge. I agree with meclizine to control symptoms of nausea, vomiting and vertigo no longer than a week. The patient is stable to discharge home. Follow-up at neurology clinic in a month. I have informed [facility] neurology clinic to set up a follow-up appointment. Will sign off. (2) Vertigo: Plan: Impression: This is secondary to acute cerebellar ischemic stroke. Admission and Anticipated Discharge Date Admission Date: December 26, 2021 Subjective Improvement of vertigo, N/V/ Still slightly wobbly on her feet but can ambulate independently. TTE is unremarkable as well as telemetry. Good BP control. Review of Systems Review of Systems: All systems reviewed & are unremarkable except as noted in HPI & below Physical Exam Physical Exam: General Examination: Constitutional: Well developed person in no acute distress. HENT: Normal exam with inspection. CV: Hearth rhythm is regular. Neck: Supple, no carotid bruits. Lungs: Non-labored and comfortable breathing. Abdomen: Soft, non-tender, non-distended. Skin: No rash or ecchymosis. Extremities: No edema or cyanosis NEUROLOGICAL EXAMINATION: Mental Status: Alert and oriented to place, person and time. Cranial Nerves: II-XII are intact. No nystagmus. Funduscopy: Normal looking optic discs. Motor: 5/5 in all extremities without asymmetry. Tone: Normal without spasticity or rigidity. DTRs: 2- all. No babinski. Sensory: Intact to all sensory modalities. Coordination: No dysmetria with FTN testing. Speech: Fluent. Comprehension is intact. Gait: Not assessed but reportedly she was able to ambulate independently today Musculoskeletal: Normal muscle bulk, no atrophy. Results & Data ([facility]) Vital Signs (Past 12 Hours) Vital Signs Temp Pulse Pulse Resp BP Pulse Ox O2 Del Method 12/27/21 11:07 36.8 C 76 18 153/81 H 95 Room Air 12/27/21 07:32 36.8 C 76 18 106/64 95 Room Air 12/27/21 07:18 81 12/27/21 04:10 36.6 C 78 18 106/61 92 Room Air Laboratory Results Laboratory Results - last 24 hr 12/27/21 12/27/21 12/27/21 05:46 05:46 05:46 WBC 6.20 RBC 4.30 Hgb 13.1 Hct 39.2 MCV 91.2 MCH 30.5 MCHC 33.4 RDW Std Deviation 46.3 RDW Coeff of Serenity 13.8 Plt Count 223 MPV 9.7 Immature Gran % (Auto) 0.2 Neut % (Auto) 50.8 Lymph % (Auto) 39.7 [place] % (Auto) 7.9 Eos % (Auto) 1.1 Baso % (Auto) 0.3 Neut # (Auto) 3.15 Lymph # (Auto) 2.46 [place] # (Auto) 0.49 Eos # (Auto) 0.07 Baso # (Auto) 0.02 Immature Gran # (Auto) 0.01 Sodium 142 Potassium 3.4 L Chloride 110 H Carbon Dioxide 26 Anion Gap 6 BUN 11 Creatinine 0.89 Est Cr Clr Drug Dosing 66.0 Est GFR ( Amer) 77.7 Est GFR (Non-Af Amer) 67.1 BUN/Creatinine Ratio 12.4 Glucose 86 Estimat Average Glucose 120 Hemoglobin A1c 5.8 H Calcium 8.2 L Triglycerides 177 H Cholesterol 184 LDL Cholesterol, Calc 103 VLDL Cholesterol, Calc 35 H HDL Cholesterol 46 Cholesterol/HDL Ratio 4.0 Vitamin B12 Homocysteine TSH 12/27/21 12/27/21 12/27/21 05:46 05:46 05:46 WBC RBC Hgb Hct MCV MCH MCHC RDW Std Deviation RDW Coeff of Serenity Plt Count MPV Immature Gran % (Auto) Neut % (Auto) Lymph % (Auto) [place] % (Auto) Eos % (Auto) Baso % (Auto) Neut # (Auto) Lymph # (Auto) [place] # (Auto) Eos # (Auto) Baso # (Auto) Immature Gran # (Auto) Sodium Potassium Chloride Carbon Dioxide Anion Gap BUN Creatinine Est Cr Clr Drug Dosing Est GFR ( Amer) Est GFR (Non-Af Amer) BUN/Creatinine Ratio Glucose Estimat Average Glucose Hemoglobin A1c Calcium Triglycerides Cholesterol LDL Cholesterol, Calc VLDL Cholesterol, Calc HDL Cholesterol Cholesterol/HDL Ratio Vitamin B12 247 Homocysteine Pending TSH 2.[address] 12/26/21 00:[address] DOSE: 1160.87 mGy.cm HISTORY: liao, dizzy, vomiting TECHNIQUE: Multiaxial CT images of the head were performed without the use of intravenous contrast. Automated exposure control was utilized for this study. A dose lowering technique was utilized adhering to the principles of ALARA. Comparison: Head CT 09/19/2018. Findings: The paranasal sinuses and mastoid air cells are clear. The calvarium and skull base are intact. The ventricles and sulci are within normal limits. There is no mass, hematoma, midline shift, or acute infarct. Impression: No acute intracranial abnormality. ACT 112: Negative or not required by law. Electronically signed by: Franklyn Guillermo M.D. 12/26/2021 7:12 AM Head CTA 12/26/21 00:23 CT ANGIOGRAM OF THE BRAIN CLINICAL HISTORY: Headache and dizziness. Vomiting. COMPARISON STUDY: Unenhanced CT of the brain performed concurrently on 12/26/2021. TECHNIQUE: Following the IV administration of 112 cc of Optiray 320, CT angiogram of the brain was performed from the skull base to the vertex. Images are reviewed in the axial, sagittal, and coronal planes. 3-D MIPS images are created and assessed. IV contrast was administered without complication. A dose lowering technique was utilized adhering to the principles of ALARA. FINDINGS: Brain parenchyma: There is no evidence of hemorrhage, mass effect, or acute territorial ischemia noting angiographic phase technique. There is no evidence of enhancing mass lesion on the angiogram phase images. No extra-axial fluid collection is seen. Miles-white matter differentiation is preserved. Ventricles, sulci, and cisterns: Normal in configuration. CT angiogram of the brain: The internal carotid arteries are widely patent, as are the anterior and middle cerebral arteries. The basilar artery is diminutive and there are bilateral posterior communicating arteries. The vertebrobasilar system and posterior cerebral arteries are widely patent. The vertebral arteries are codominant. There is no aneurysm, high-grade stenosis, or focal vessel cutoff identified throughout the intracranial circulation. Dural sinuses: Clear as visualized. Orbits: The bony orbits are intact. The orbital contents are normal as visualized noting bilateral ocular lens implants. Sinuses and mastoids: The visualized paranasal sinuses are clear. The mastoid air cells are well pneumatized. Calvarium: Unremarkable. IMPRESSION: 1. There is no evidence of hemorrhage, mass effect, or acute territorial ischemia noting angiographic phase technique. 2. Unremarkable CT angiogram of the brain ACT 112: Negative or not required by law. Electronically signed by: Gamaliel Moraes M.D. 12/26/2021 9:02 AM Neck CTA 12/26/21 00:23 NECK CTA HISTORY: Headache, dizzy, vomiting TECHNIQUE: Multiaxial CT images of the neck were performed following the intravenous administration of contrast to evaluate the major cervical vessels. Maximum intensity projection images were also obtained. All measurements were calculated based on NASCET criteria. A dose lowering technique was utilized adhering to the principles of ALARA. COMPARISON STUDY: None. FINDINGS: The aortic arch and proximal great vessels are widely patent. There is no significant stenosis, occlusion, or dissection identified within the bilateral common carotid, internal carotid, or vertebral arteries. Incidental note is made of a focal kink within within the proximal left femoral artery. IMPRESSION: No significant stenosis, occlusion, or dissection identified within the carotid or vertebral arteries. ACT 112: Negative or not required by law. Electronically signed by: Franklyn Guillermo M.D. 12/26/2021 7:36 AM Brain MRI 12/26/21 08:02 MR brain wo/w con HISTORY: 66 years-old Female ?posterior CVA - vertigo, vomiting acute strokelike symptoms with vertigo, nausea and vomiting. COMPARISON: Head CT of same day, brain MRI 11/03/2005. TECHNIQUE: Multiplanar and multisequence MRI of the brain was obtained both with and without the use of 8 cc Gadavist. FINDINGS: 5 mm focus of restricted diffusion is noted involving the superior aspect of the left cerebellum, image 8 series 4 with decreased signal on the ADC map. Mild associated increased T2/FLAIR signal. No acute or subacute territorial infarct. Midline structures appear unremarkable. There is no pathologic blooming artifact on the T2 star series. No acute intracranial hemorrhage, midline shift, abnormal extra-axial collection, hydrocephalus or intracranial mass. Cerebral venous sinuses and major arterial flow voids appear patent. The skull and soft tissues are unremarkable. Prior bilateral lens repair. Mastoid air cells and paranasal sinuses are clear. Volume and signal of the brain parenchyma is within normal limits. No abnormal enhancement. IMPRESSION: 1. Subcentimeter acute infarct of the superior left cerebellum. 2. No acute or subacute territorial infarct. 3. No abnormal enhancement. ACT 112: Negative or not required by law. The above report was generated using voice recognition software. It may contain grammatical, syntax or spelling errors. Dictated: 12/26/2021 12:45 PM Transcribed: 12/26/2021 1:01 PM Jaelyn [id number] [email or web address] Electronically signed by: Les Ling M.D. 12/26/2021 2:02 PM
[2021-12-27] MEDS ORDERED: STROKE PATIENT DISCHARGE STA (15:25)
--- NOTE | 2021-12-27 15:36 | Discharge Summary ---
Date of Service December 27, 2021 Admission HPI Per Admitting Provider Mena Torres is a 66yo female presenting with acute onset of vertigo. She was out this evening with her at [employer]. She had a few drinks and was playing a video game when she developed acute onset of vertigo, nausea with vomiting. She was unable to keep her eyes open and was having difficulty with ambulation. She denies LUND, speech difficulty or focal numbness or weakness. She was given multiple agent in the ER to attempt to control nausea and dizziness, however, patient still unable to keep her eyes open for a long period of time. Persistent vomiting in the ER - Non-bloody/Non-bilious Afebrile, HD stable Vomiting throughout exam Patient does report a strange episode 3 days ago during which she was unable to speak. The event lasted approximately 30 seconds. She took 2 baby aspirin, and the symptoms resolved on their own. She has never had an experience like that before. ER Course: Diazepam 2mg x 2 doses, Prochlorperazine 1mL, Meclizine 25mg, Zofran 4mg IV x 4, NSS Principal Diagnosis Acute ischemic cerebellar CVA B12 deficiency Prediabetes Dizziness Tension headache Discharge Exam Vitals reviewed Gen: AAOx3, NAD HEENT: Anicteric sclerae, EOMI, PERRLA, no nystagmus CV: RRR no mgr nl S1S2 Pulm: CTAB no wcr Abd: +BS soft NT ND no masses or hernias Ext: No edema, 2+ DP pulses Skin: No rashes, warm/dry Neuro: Full strength throughout Discharge Data Allergies Allergy/AdvReac Type Severity Reaction Status Date / Time Penicillins Allergy Unknown Swelling Verified 12/26/21 01:09 of Lip/Tongue/Throat Consultations 12/26/21 05:30 ED Decision to Admit Stat 12/26/21 14:13 Consult Neurology Routine Ordered Studies 12/26/21 00:23 CT angio head w con Stat CT angio neck with con Stat CT head/brain wo con Stat 12/26/21 08:02 MR brain wo/w con Routine ECHO Hospital Course (1) Vertigo: 66yo female with history of migraine and asthma presenting with acute onset vertigo, nausea with multiple episodes of non-bloody/non-bilious vomiting. Symptoms are aggravated by slight movement and positional changes. No focal neurological deficits. Patient does report a brief episode of dysarthria several days ago which resolved after two aspirin. She denies any history of hypertension, smoking, diabetes, prior stroke. She denies any history of blood clots in herself or the family. She also reports that several days ago she had an episode where she could not speak for few minutes. Also she has had an occurrence of blurry prism like vision in both eyes that lasts 2 minutes each time and has not followed by headache. This has occurred at least 15 times in the last few months. She does have a previous history of migraine headaches but has not had one in a long time. She does however lately get tension headaches similar to when she has had here since admission CT angiogram head and neck negative, CT head negative MRI with 5 mm acute to subacute left cerebellar stroke ECHO negative bubble study, otherwise normal Tele with only one 3 second burst of PAT but no Afib/flutter while here HgbA1C prediabetic range at 5.8% Lipids good B12 deficient and homocysteine pending at time of discharge TSH normal BPs normal Seen by Neurology Fortunately, her dizziness and N/V were completely resolved after receiving meclizine, ativan, IVFs, antiemetics -started ASA 81mg daily and Plavix load given with recommendation to continue Plavix 75mg po daily x 3 weeks, then stop and continue ASA alone -started high intensity statin -Rx sent for 30 day cardiac event monitor to be mailed to her house for occult Afib/flutter -counseled on weight loss and low carb diet for prediabetes -started B12 supplement and needs f/u on homocysteine level after discharge -f/u with Neurology in 1 month -can take meclizine as needed for vertigo after discharge for no more than one week -advised no driving for at least one week as long as dizziness remains resolved -gave Rx for outpt vestibular therapy/PT (2) CVA (cerebral vascular accident): as above (3) Asthma: albuterol prn singulair prn (4) Prediabetes: as above, counseled on weight loss, low carb diet (5) Tension headache: APAP as needed (6) B12 deficiency: as above, replaced here with IM B12 and will continue po B12 1000 mcg daily, f/u levels as outpt Plan Dispo-stable for dc to home Total Time Total Time Spent Total Time Spent (In Minutes): 40 min Discharge Plan Discharge Items Patient Disposition: Home - Self-Care Reason For Visit: VERTIGO Discharge Diagnosis: Acute ischemic CVA, Dizziness B12 deficiency Prediabetes Activity: As commented below Lifting: Gradually increase as tolerated Bathing: No limitations Exercise/Sports: Gradually increase as tolerated Exercise Comment: with outpatient PT Driving/Machine Use: No driving until dizziness completely resolved x 1 week Weightbearing: Full weightbearing Non-emergency contact: Primary Care Provider and Neurologist Call non-emergency contact if: you have any medication questions and your symptoms worsen Follow-up/Referrals: Abbey Mora MD [Primary Care Provider] - (Follow up within 1-2 weeks.) Benjie Tapia MD [Physician] - (The [facility] should be contacting you with an appointment date and time for in 1 month approximately.) Diet: Carb Consistent or DM2 Addtl Attending Provider Instructions: You were admitted with dizziness and found to have a small stroke in the left cerebellum which is apart of the back of your brain. To prevent future strokes, you were started on aspirin and Plavix, as well as a cholesterol medication called atorvastatin. You should STOP taking the Plavix after 3 weeks and only continue on the baby aspirin indefinitely at that point. You are "prediabetic" and should focus on increasing your exercise level and eating a low carbohydrate diet to prevent full blown diabetes from developing. You can participate in vestibular rehabilitation to improve the dizziness associated with your stroke. You can also take meclizine as needed for no more than one week. A heart monitor will be sent to your home to wear for 30 days to look for abnormal heart rhythms that can cause strokes. Please follow up with the Neurologist in one month. You were found to have vitamin B12 deficiency and should take oral vitamin B12 daily. If your levels don't come up, you might need further B12 injections in the future. One of your blood tests to look for thickened blood was still pending at the time of discharge-the "homocysteine" level. Dr. Mora can follow up on the results of this when it comes back. Addtl Pump Servicer Supervisor Provider Instructions: Risk Factors for Stroke: You can reduce your chances of stroke by working with your medical provider to adopt a healthy lifestyle. Some specific ways to lower your chance of stroke are: * If you are a smoker, now is the time to stop smoking cigarettes * If you are diabetic, improve the control of your blood sugars * Avoid excessive amounts of alcohol * Control high blood pressure * Lose weight if you are overweight * Be sure to lead an active lifestyle * Eat a healthy diet low in salt, cholesterol and fat You should know about other risk factors for stroke that you are unable to control. These include: * Age 55 years or older * Male gender * Certain racial groups: , or / * Family History of Stroke, Mini stroke or Heart Attack * Sickle Cell Disease Follow Up: It is important for you to keep your follow up appointments with your medical provider. Who to Call and When: Medical Emergencies: Call 911 immediately if you experience any of the following warning signs and symptoms of Stroke: * Sudden numbness or weakness of the face, arm or leg, especially on one side of the body * Sudden confusion, trouble speaking or understanding * Sudden trouble seeing in one or both eyes * Sudden trouble walking, dizziness, loss of balance or coordination * Sudden severe headache with no cause Do not delay calling 911 if you experience any warning signs or symptoms of a stroke. Delay in seeking medical attention may affect what treatments can be given to you. . Pending Studies at Discharge: Yes Studies:: Homocysteine level Stand-Alone Forms: Medications to Prevent Stroke, My [facility] [address], Smoking Cessation Medications and DC Order Prescriptions: New clopidogrel 75 mg Tablet 75 mg PO QAM Qty: 20 0RF atorvastatin 40 mg Tablet 40 mg PO QAM Qty: 30 0RF aspirin 81 mg Tablet,Delayed Release (Dr/Ec) 81 mg PO DAILY Qty: 90 0RF Rx Instructions: OTC meclizine 25 mg Tablet 25 mg PO TID PRN (Reason: dizziness) Qty: 10 0RF cyanocobalamin (vitamin B-12) 1,000 mcg capsule 1,000 mcg PO DAILY Qty: 30 0RF Rx Instructions: OTC Continued fexofenadine 180 mg tablet 180 mg PO DAILY Qty: 90 1RF fluticasone propionate 50 mcg/actuation spray,suspension 2 sprays intranasal DAILY Qty: 16 5RF albuterol sulfate [Ventolin HFA] 90 mcg/actuation HFA aerosol inhaler 1 - 2 puff INH .COMPLEX PRN (Reason: shortness of breath or wheezing) Qty: 8.5 5RF Rx Instructions: 1 - 2 puffs inhalation Q4-6H PRN; montelukast [Singulair] 10 mg tablet 10 mg PO QPM PRN (Reason: Allergy Symptoms) multivitamin [Multiple Vitamin] Tablet 1 tab PO DAILY calcium carbonate-vitamin D3 [Calcium 600 + D(3)] 600 mg-10 mcg (400 unit) Tablet 1 tab PO DAILY Discharge Orders: Discharge Order (Routine); Ordered 12/27/21 Ordered By: Arlene Regalado Admission Data Admit Date/Time: 12/26/21 05:46 Attending Provider: Arlene Regalado Admit Provider: Kareen Kramer Primary Care Provider: Abbey Mora Other Providers: Kareen Kramer ; Benjie Tapia Coding Level of Care Code D/C DAY MANAGEMENT >30 MINS Diagnoses Vertigo R42 CVA (cerebral vascular accident) I63.9 Asthma J45.909 Prediabetes R73.03 Tension headache G44.209 B12 deficiency E53.8
--- NOTE | 2021-12-27 15:38 | Pharmacy Report ---
Pharmacist Stroke Counseling - Date of Service December 27, 2021 - Scope: Pharmacy has been consulted to provide medication discharge counseling for this patient admitted with ischemic stroke as per the Pharmacist Discharge Counseling for Stroke Patients Protocol. - Medications on Discharge: Home Medications Medication Instructions Recorded Confirmed montelukast 10 mg tablet 10 mg PO QPM PRN Allergy Symptoms 12/19/20 12/26/21 (Singulair) calcium carbonate 600 mg-vitamin 1 tab PO DAILY 12/26/21 12/26/21 D3 10 mcg (400 unit) tablet (Calcium 600 + D(3)) multivitamin 1 tab PO DAILY 12/26/21 12/26/21 New Rx's Medication Instructions Recorded fexofenadine 180 mg tablet 180 mg PO DAILY #90 tabs 09/01/18 fluticasone propionate 50 2 sprays intranasal DAILY #16 grams 09/01/18 mcg/actuation nasal spray,suspension albuterol sulfate 90 mcg/actuation 1 - 2 puff inhalation .COMPLEX PRN 08/21/20 aerosol inhaler (Ventolin HFA) shortness of breath or wheezing #8.5 grams aspirin 81 mg tablet,delayed 81 mg PO DAILY #90 tabs 12/27/21 release atorvastatin 40 mg tablet 40 mg PO QAM #30 tabs 12/27/21 clopidogrel 75 mg tablet 75 mg PO QAM #20 tabs 12/27/21 cyanocobalamin (vitamin B-12) 1,000 mcg PO DAILY #30 caps 12/27/21 1,000 mcg capsule meclizine 25 mg tablet 25 mg PO TID PRN dizziness #10 tabs 12/27/21 - Action: The above medications, specifically ones for stroke treatment/prophylaxis, have been reviewed in detail with the patient and/or patient veterans service representative(s) prior to discharge. This includes indication, common adverse reactions, drug interactions, and medication administration. Medication counseling has been employed using the teach-back method to ensure understanding. - Outcome: The patient and/or patient veterans service representative(s) have demonstrated understanding of the medications. Additional comments: - Medication additions reviewed with patient, patient demonstrated understanding of these. Reports previously tolerating aspirin. - No obvious barriers to medication compliance identified Thank you for allowing pharmacy to be involved in the care of this patient. Please call [phone] with any additional questions
[2021-12-27] MEDS ORDERED: ONDANSETRON INJ 2 MG/ML 2 ML VIAL IV ONE (17:16)
== END 2021-12-27 17:17 | disposition home or self-care (01) ==
LOC: ED 21:30 → 2W 21:30 → SUATTDRO 12-26 07:56